=== PATIENT | male | born 1965 | race Caucasian/White ===

== ENCOUNTER 2021-08-27 15:31 | Observation (INO) | payer BC, OTHER ==
[2021-08-27] MEDS ORDERED: FAMOTIDINE 20 MG/50 ML IVPB 20 MG/50 ML MG IVPB ONE ×2 (16:18→16:29)
[2021-08-27 16:43] LABS: HEMATOCRIT 45.5 % (35.4-49); HEMOGLOBIN 15.9 G/dL (11.7-16.9); MCH 30.3 pg (25.7-33.7); MCHC 34.9 g/dl (32.0-35.9); MEAN CELL VOLUME 86.6 fl (80-96); MEAN PLT VOLUME 8.2 fl (7.5-11.1); PLATELET COUNT 211.5 10^3/uL (134-434); RBC 5.25 10^6/uL (4.00-5.60); RDW 14.4 % (11.9-15.9)
[2021-08-27 16:52] LABS: ALBUMIN 4.1 g/dl (3.4-5.0); BILIRUBIN,TOTAL 1.1 mg/dl (0.2-1); CALCIUM 9.2 mg/dl (8.5-10); CREATININE 0.8 mg/dl (0.55-1.3); TOT PROT 7.9 g/dl (6.4-8.2)
[2021-08-27 17:01] LABS: PLATELET ESTIMATE ADEQUATE
[2021-08-27] MEDS ORDERED: SODIUM CHLORIDE 1,000 ML IV STA (20:44)
[2021-08-27 23:01] VITALS: BMI 29.0
[2021-08-27] MEDS ORDERED: ACETAMINOPHEN 1000 MG/100 ML BAG IVPB PRN (23:14)
[2021-08-28 08:26] LABS: HEMATOCRIT 39.9 % (35.4-49); MCH 30.7 pg (25.7-33.7); MCHC 35.1 g/dl (32.0-35.9); MEAN CELL VOLUME 87.3 fl (80-96); MEAN PLT VOLUME 8.1 fl (7.5-11.1); PLATELET COUNT 176.2 10^3/uL (134-434); RBC 4.57 10^6/uL (4.00-5.60); WHITE BLOOD COUNT 7.9 10^3/uL (4.0-10.8)
[2021-08-28 08:29] LABS: ALBUMIN 3.4 g/dl (3.4-5.0); BILIRUBIN,TOTAL 1.1 mg/dl (0.2-1); CALCIUM 8.7 mg/dl (8.5-10); CREATININE 0.9 mg/dl (0.55-1.3); TOT PROT 6.5 g/dl (6.4-8.2)
[2021-08-28 09:16] LABS: PLATELET ESTIMATE ADEQUATE
[2021-08-28] MEDS: HEPARIN NA (PORCINE) 5,000 UNITS/ML 1ML VIAL SQ SCH ×2 (09:43→21:17)
[2021-08-28] MEDS: DEXTROSE 5%-0.45% SALINE 1,000 ML IV SCH ×2 (23:47)
[2021-08-29 05:45] VITALS: BP 106/58; PULSE 60; TEMP 98.1
[2021-08-29] MEDS: HEPARIN NA (PORCINE) 5,000 UNITS/ML 1ML VIAL SQ SCH (09:40)
== END 2021-08-29 14:12 | disposition home or self-care (01) ==
LOC: FER 15:31 → UNDOADMOB 22:47 → FM/S 22:47 → INTOOBSV 22:47 → FM/S 23:12
PROVIDERS: ADMIT Hospitalist; ATTEND Nurse Practitioner Family
PROC: 3E033GC Introduction of Other Therapeutic Substance into Peripheral Vein, Percutaneous Approach (ICD-10-PCS; principal; 2021-08-27)
PROC: 3E033NZ Introduction of Analgesics, Hypnotics, Sedatives into Peripheral Vein, Percutaneous Approach (ICD-10-PCS; 2021-08-27)
PROC: 3E0337Z Introduction of Electrolytic and Water Balance Substance into Peripheral Vein, Percutaneous Approach (ICD-10-PCS; 2021-08-27)
DX: K56.609 Unspecified intestinal obstruction, unspecified as to partial versus complete obstruction (principal); R10.9 Unspecified abdominal pain; Z20.822 Contact with and (suspected) exposure to COVID-19; Z29.8 Encounter for other specified prophylactic measures; R14.0 Abdominal distension (gaseous); R19.7 Diarrhea, unspecified
CPT/HCPCS: 36415; 71045-TC-FY; 74019-TC-FY; 74176-TC; 80053; 81003; 83690; 85025; 85027; 87086; 93005; 96361; 96365; 96375; 99285-25; C9803-CS; G0378; J1644; U0003; U0005